=== PATIENT | male | born 1965 | race Caucasian/White ===

== ENCOUNTER 2018-11-03 01:38 | Day surgery (SDC) | payer OTHER ==
[~2018-11-03] VITALS: Ht 170.2 cm; Wt 87.5 kg
[2018-11-03] VITALS (7 sets, daily range): BP systolic 86–114; BP diastolic 60–72
[~2018-11-03 01:38] MED LIST: ACET-3017 PO; BUPR-133 PO; FENO43CA PO; GABA-547 PO; HYDR-6015 PO; HYDR2TAB74 PO; LISD20CA4 PO; METH-280 PO; METH4TAB66 PO; MULT-67; MV-M1TAB38; TEST2.5G6 TD; cholesterol med; levothyroxine PO
[2018-11-03] MEDS ORDERED: PROPOFOL EMUL(*) 10MG/ML 20 ML 40 ML ONE (12:12)
[2018-11-03] MEDS ORDERED: LIDOCAINE MPF 1% 5 ML VIAL ONE (12:12)
[2018-11-03] MEDS ORDERED: LIDOCAINE/SOD BICARB 8.4% SYR ID ONE (12:30)
[2018-11-03] MEDS ORDERED: NORMOSOL R SOLN(*) 1000 ML BAG 1,000 ML IV PRN (12:30)
--- NOTE | 2018-11-03 13:55 | Short(Outpt) Discharge Summary ---
Discharge Summary Reason for Hosp/Final Diag: (1) Encounter for screening colonoscopy Hospital Course & Plan: pt presented for screening colonoscopy. he tolerated the procedure well and there were no complications. 1 polyp removed. path pending. Discharge Instructions Home Meds Reported Medications Bupropion Hcl (WELLBUTRIN SR) Unknown Strength Tablet.er, 150 MG PO QDAY, TAB 10/18/18 Mv-Mn/FA/Vit K/Lycop/Lut/Zeaxa (Ocuvite Eye + Multi Tablet) Unknown Strength Tablet 10/18/18 Fenofibrate,Micronized (FENOFIBRATE) Unknown Strength Capsule, 48 MG PO QDAY, CAPSULE 10/18/18 Multivitamin/Iron/Folic Acid (Centrum Adults Tablet) Unknown Strength Tablet 10/18/18 Lisdexamfetamine Dimesylate (VYVANSE) Unknown Strength Capsule, 50 MG PO QDAY, CAPSULE 10/18/18 [levothyroxine] No Conflict Check, 100 MCG PO QAM 10/02/14 Discontinued Reported Medications [cholesterol med] No Conflict Check 10/02/14 Diet: Regular Activity: As Tolerated Special Instructions: we will call you in 7-10 days with pathology results CHRISTA PHILLIPS Nov 03, 2018 13:55
== END 2018-11-03 14:56 | disposition home or self-care (01) ==
LOC: OR 01:38
PROVIDERS: ATTEND Surgery
DX: Z12.11 Encounter for screening for malignant neoplasm of colon (principal); D12.8 Benign neoplasm of rectum; Z83.71 Family history of colonic polyps
CPT/HCPCS: 00811; 45385; 88305; J2001; J2704